=== PATIENT | male | born 1995 | race Hispanic/Latino ===

== ENCOUNTER 2017-04-20 12:50 | Emergency (ER) | payer SELFPAY ==
[2017-04-20] MEDS ORDERED: ONDANSETRON ODT 4 MG TAB ONE (14:02)
[2017-04-20] MEDS ORDERED: KETOROLAC TROMETHAMINE 30MG/ML ONE (14:02)
== END 2017-04-20 14:32 | disposition home or self-care (01) ==
LOC: EDH 12:50
DX: K52.9 Noninfective gastroenteritis and colitis, unspecified (principal); R42 Dizziness and giddiness; J45.909 Unspecified asthma, uncomplicated; Z88.6 Allergy status to analgesic agent; Z90.49 Acquired absence of other specified parts of digestive tract
CPT/HCPCS: 96372; 99283; J1885

== ENCOUNTER 2021-12-20 11:14 | Emergency (ER) | payer OTHER ==
[~2021-12-20] VITALS: Ht 165.1 cm; Wt 90.7 kg
[2021-12-20] MEDS ORDERED: KETOROLAC 30MG VIAL (30MG/ML) IVP ONE (11:30)
[2021-12-20 11:45] LABS: BASOPHILS % (AUTO) 0.2 % (0.0-5.0); EOSINOPHILS % (AUTO) 0.5 % (0.0-8.0); HEMATOCRIT 46.3 % (42-54); LYMPHOCYTES % (AUTO) 12.9 % (21.0-51.0); MEAN CORPUSCULAR HEMOGLOBIN 23.5 pg (27.0-33.0); MEAN CORPUSCULAR HGB CONC 31.5 g/dL (32.0-36.0); MEAN CORPUSCULAR VOLUME 74.7 fL (79-99); MONOCYTES % (AUTO) 8.7 % (3.0-13.0); NEUTROPHILS % (AUTO) 77.4 % (40.0-77.0); PLATELET COUNT (AUTO) 372 K/uL (130-400); RED CELL DISTRIBUTION WIDTH 17.8 % (11.0-15.5); WHITE BLOOD COUNT (AUTO) 10.6 K/uL (4.8-10.8)
[2021-12-20 11:54] LABS: POTASSIUM 3.8 mmol/L (3.5-5.1)
[2021-12-20 11:55] LABS: INR 1.03 (0.85-1.15); PROTHROMBIN TIME 11.2 SEC (9.6-11.6)
[2021-12-20 11:56] LABS: PARTIAL THROMBOPLASTIN TIME 35.2 SEC (26.3-35.5)
[2021-12-20] MEDS ORDERED: IOHEXOL 350 MG/ML 100ML INFUS..BTL IV ONE (11:58)
[2021-12-20 11:59] LABS: ALBUMIN 4.1 g/dL (3.5-5.0); TOTAL PROTEIN, SERUM 8.7 g/dL (6.0-8.3)
[2021-12-20] MEDS ORDERED: IBUP-1493 PO (12:55)
[2021-12-20] MEDS ORDERED: CYCL-309 PO (12:55)
[2021-12-20 13:19] VITALS: BP 164/100
[2021-12-21] MEDS ORDERED: AMOX1TAB16 PO (02:18)
== END 2021-12-20 13:27 | disposition home or self-care (01) ==
LOC: EDH 11:14
DX: S10.93XA Contusion of unspecified part of neck, initial encounter (principal); S20.221A Contusion of right back wall of thorax, initial encounter; Z79.1 Long term (current) use of non-steroidal anti-inflammatories (NSAID); Z90.49 Acquired absence of other specified parts of digestive tract; V49.59XA Passenger injured in collision with other motor vehicles in traffic accident, initial encounter; Y93.89 Activity, other specified; Y92.89 Other specified places as the place of occurrence of the external cause; Y99.8 Other external cause status
CPT/HCPCS: 99285; 70450; 96374; 80053; 85025; 85610; 85730; 36415; 72125; 71270; 72131; 72128; 74178; 93005; J1885; Q9967

== ENCOUNTER 2021-12-20 23:27 | Emergency (ER) | payer OTHER ==
[~2021-12-20] VITALS: Ht 160 cm; Wt 90.7 kg
[~2021-12-20 23:27] MED LIST: CYCL-309 PO; IBUP-1493 PO
[2021-12-21 00:29] LABS: POTASSIUM 3.5 mmol/L (3.5-5.1)
[2021-12-21 00:33] LABS: ALBUMIN 3.6 g/dL (3.5-5.0); BASOPHILS % (AUTO) 0.3 % (0.0-5.0); EOSINOPHILS % (AUTO) 1.5 % (0.0-8.0); HEMATOCRIT 43.7 % (42-54); LYMPHOCYTES % (AUTO) 25.4 % (21.0-51.0); MEAN CORPUSCULAR HEMOGLOBIN 23.6 pg (27.0-33.0); MEAN CORPUSCULAR HGB CONC 31.4 g/dL (32.0-36.0); MEAN CORPUSCULAR VOLUME 75.2 fL (79-99); MONOCYTES % (AUTO) 10.8 % (3.0-13.0); NEUTROPHILS % (AUTO) 61.8 % (40.0-77.0); PLATELET COUNT (AUTO) 364 K/uL (130-400); RED BLOOD CELL COUNT(AUTO) 5.81 MIL/uL (4.50-6.20); RED CELL DISTRIBUTION WIDTH 17.4 % (11.0-15.5); TOTAL PROTEIN, SERUM 8.1 g/dL (6.0-8.3); WHITE BLOOD COUNT (AUTO) 8.6 K/uL (4.8-10.8)
[2021-12-21 02:00] VITALS: BP 167/108
[2021-12-21] MEDS ORDERED: AMOX1TAB16 PO (02:18)
== END 2021-12-21 02:30 | disposition home or self-care (01) ==
LOC: EDH 23:27
DX: J01.90 Acute sinusitis, unspecified (principal); Z20.822 Contact with and (suspected) exposure to COVID-19; Z79.1 Long term (current) use of non-steroidal anti-inflammatories (NSAID); Z90.49 Acquired absence of other specified parts of digestive tract
CPT/HCPCS: 99283; 87635; 80053; 85025; 87880; 87804 ×2; 36415; C9803